=== PATIENT | male | born 1950 ===

== ENCOUNTER 2018-07-15 22:33 | Observation (INO) | payer MEDICARE, BC ==
--- NOTE | 2018-07-16 00:01 | C.PDOC ---
History Of Present Illness Patient presents with worsening lower extremity edema and worsening scrotal and penile edema. Patient has Hx of kidney transplant and insulin dependent diabetes. Denies chest pain or SOB. Ambulating without difficulty. Time Seen by Provider: 07/16/18 00:00 Chief Complaint (Nursing): Lower Extremity Problem/Injury History Per: Patient History/Exam Limitations: no limitations Onset/Duration Of Symptoms: Hrs Current Symptoms Are (Timing): Still Present Severity: Moderate Pain Scale Rating Of: 4 Reports Recently: Treated By A Physician Recent travel outside of the [place]: No Additional History Per: Patient Past Medical History Reviewed: Historical Data, Nursing Documentation, Vital Signs Vital Signs: Last Vital Signs Temp 98.4 F 07/15/18 22:51 Pulse 60 07/15/18 22:51 Resp 16 07/15/18 22:51 BP Pulse Ox 100 07/15/18 22:51 Primary Care Provider: Non [facility] Provider, - Medical History PMH: HTN Family History: States: No Known Family Hx - Social History Hx Alcohol Use: No Hx Substance Use: No - Immunization History Hx Tetanus Toxoid Vaccination: No Hx Influenza Vaccination: Yes Hx Pneumococcal Vaccination: No Review Of Systems Constitutional: Negative for: Fever, Chills Eyes: Negative for: Vision Change ENT: Negative for: Throat Pain Cardiovascular: Negative for: Chest Pain, Palpitations Respiratory: Negative for: Cough, Shortness of Breath Gastrointestinal: Negative for: Nausea, Vomiting Genitourinary: Positive for: Scrotal Pain, Other (Scrotal and penile edema). Negative for: Dysuria Musculoskeletal: Positive for: Other (Lower extremity edema) Skin: Negative for: Rash Neurological: Negative for: Weakness, Numbness Psych: Negative for: Anxiety Physical Exam - Physical Exam Appears: Non-toxic Skin: Warm, Dry Head: Normacephalic Eye(s): bilateral: Normal Inspection Oral Mucosa: Moist Neck: Trachea Midline, Supple Chest: Symmetrical, No Tenderness Cardiovascular: Rhythm Regular Respiratory: No Rales, No Rhonchi, No Wheezing Gastrointestinal/Abdominal: Soft, No Tenderness, Other (Para midline surgical scar, well healed) Back: No CVA Tenderness Male Genital: No Testicular Tenderness, Inguinal Swelling, Scrotal Swelling, No Circumcised, Other (Severe penile and scrotal edema.) Extremity: Pedal Edema (Bilateral) Extremity: Bilateral: Atraumatic, Normal Color And Temperature Pulses: Left Dorsalis Pedis: Normal, Right Dorsalis Pedis: Normal Neurological/Psych: Oriented x3 Gait: Steady ED Course And Treatment - Laboratory Results Result Diagrams: 07/16/18 01:08 07/16/18 01:08 ECG: Interpreted By Me, Viewed By Me ECG Rhythm: Sinus Rhythm (56), 1st Degree HB, Nonspecific Changes O2 Sat by Pulse Oximetry: 100 (Room air) Pulse Ox Interpretation: Normal - Radiology CXR: Interpreted by Me, Viewed By Me CXR Interpretation: No: Infiltrates, Fracture, Pnemothorax Progress Note: EKG, blood work, CXR, and urinalysis ordered. Disposition Discussed With : Rakan Agarwal Comment: accepted the pt on his service and took over the care at 3:04 AM Counseled Patient/Family Regarding: Studies Performed, Diagnosis - Disposition Disposition: HOSPITALIZED Disposition Time: 00:01 Condition: FAIR Forms: [facility] ([place]) - POA Present On Arrival: None - Clinical Impression Clinical Impression: CHF (congestive heart failure), Scrotal edema - Scribe Statement The provider has reviewed the documentation as recorded by the Scribsamia Teague All medical record entries made by the Renataibe were at my direction and personally dictated by me. I have reviewed the chart and agree that the record accurately reflects my personal performance of the history, physical exam, medical decision making, and the department course for this patient. I have also personally directed, reviewed, and agree with the discharge instructions and disposition. Decision To Admit - Pt Status Changed To: Hospital Disposition Of: Observation - . Bed Request Type: Telemetry Admitting Physician: Rakan Agarwal Patient Diagnosis: CHF (congestive heart failure), Scrotal edema
[2018-07-16 01:17] LABS: BASO % 0.3 % (0.0-2.0); EOS # 0.1 K/uL (0.0-0.7); EOS % 1.3 % (0.0-4.0); HEMOGLOBIN 12.5 g/dL (12.0-18.0); LYMPH % 17.5 % (20.0-40.0); MEAN CELL VOLUME 89.7 fL (80.0-94.0); MEAN CORPUSCULAR HEMOGLOBIN 29.7 pg (27.0-31.0); MEAN CORPUSCULAR HGB CONC 33.1 g/dL (33.0-37.0); MEAN PLATELET VOLUME 8.6 fL (7.2-11.7); MONO # 0.6 K/uL (0.0-0.8); MONO % 10.8 % (0.0-10.0); NEUT # 3.8 K/uL (1.8-7.0); NEUT % 70.1 % (50.0-75.0); NRBC % 0.1 % (0.0-2.0); RBC 4.19 Mil/uL (4.40-5.90); RED CELL DISTRIBUTION WIDTH 13.5 % (11.5-14.5); WHITE BLOOD COUNT 5.5 K/uL (4.8-10.8)
[2018-07-16 01:23] LABS: INR 1.1; PARTIAL THROMBOPLASTIN TIME 29.5 SECONDS (21-34); PROTHROMBIN TIME 11.9 SECONDS (9.7-12.2)
[2018-07-16 01:54] LABS: ALB/GLOB RATIO 1.6 (1.0-2.1); ALBUMIN 3.4 g/dL (3.5-5.0); ALT/SGPT 26 U/L (21-72); AST/SGOT 52 U/L (17-59); BLOOD UREA NITROGEN 20 mg/dL (9-20); CALCIUM 8.9 mg/dl (8.6-10.4); GFR NON-AFRICAN AMERICAN > 60
[2018-07-16 02:10] LABS: B-TYPE NATRIURETIC PEPTIDE 7000 pg/mL (0-900)
[2018-07-16 03:43] LABS: SQUAMOUS EPITHIAL < 1 /hpf (0-5); URINE BILIRUBIN NEGATIVE (NEGATIVE); URINE BLOOD NEGATIVE (NEGATIVE); URINE CLARITY Clear (Clear); URINE COLOR Straw (YELLOW); URINE GLUCOSE (UA) NORMAL (Normal); URINE LEUKOCYTE ESTERASE NEG Leu/uL (Negative); URINE PROTEIN NEGATIVE (NEGATIVE); URINE UROBILINOGEN NORMAL mg/dL (0.2-1.0)
--- NOTE | 2018-07-16 07:05 | CP.PCM.CON ---
<Kayley Pino - Last Filed: 07/16/18 18:08> History of Present Illness - History of Present Illness History of Present Illness: Kayley Pino, PGY1 Consult Note for Dr. Cerda: CC: Penile and scrotal swelling Consulted for: LE edema Pt is a 68 yo M with pmhx of CAD s/p stent (12/11), HTN, IDDM, renal transplant in '09 who presented to [facility] ED for 2 day hx of penile and sctrotal swelling as well as LE edema x 1 wk. Cardiology team was consulted for suspicion of CHF. Pt states that over the past 2 months he has had a change in his diet and has been eating increasingly salty foods. Pt states that for the past 2 years he has noted that he has been profusely sweating every night. Pt also reports to 5 lbs of unintentional weight loss over the last year. Pt states that he has been hav ing cramps and thought it was related to salt loss from his sweating everynight. Pt states that he has been purposefully including 1/2 spoonful of salt in meals which he states has been helping his salt intake. Pt reports that he noted his LE edema first but it was not limiting his activity levels or ability to lay down flat. Pt reports that this is the first time he has ever had a problem like this. At this time the pt is resting comfortably in bed and denies any fevers, chills, headache, lightheadedness, SOB, MÉNDEZ, PND, cough, chest pain, palpitations, abd pain, n/v, c/d or dysuria. Pt does admit to LE swelling as well as penile and scrotal swelling. Pt denies any pain or discharge from the penis, or any lesions on the penis or scrotum. Review of Systems - Review of Systems Review of Systems: 12 point ROS reviewed and negative except noted in HPI above. Past Patient History - Past Social History Smoking Status: Never Smoked - CARDIAC Hx Hypertension: Yes - ENDOCRINE/METABOLIC Hx Endocrine Disorders: Yes Hx Diabetes Mellitus Type 1: Yes - PSYCHIATRIC Hx Substance Use: No - SURGICAL HISTORY Hx Surgeries: Yes Hx Kidney Transplant: Yes (2008) - ANESTHESIA Hx Anesthesia: Yes Hx Anesthesia Reactions: No Meds Allergies/Adverse Reactions: Allergies Allergy/AdvReac Type Severity Reaction Status Date / Time No Known Allergies Allergy Verified 07/15/18 22:57 Physical Exam - Constitutional Appears: Non-toxic, No Acute Distress - Head Exam Head Exam: ATRAUMATIC, NORMAL INSPECTION, NORMOCEPHALIC - Eye Exam Eye Exam: EOMI, Normal appearance, PERRL - ENT Exam ENT Exam: Mucous Membranes Moist - Respiratory Exam Respiratory Exam: Clear to Auscultation Bilateral, NORMAL BREATHING PATTERN. absent: Accessory Muscle Use, Rales, Rhonchi, Wheezes, Respiratory Distress - Cardiovascular Exam Cardiovascular Exam: RRR, +S1, +S2. absent: Gallop, Rubs - GI/Abdominal Exam GI & Abdominal Exam: Normal Bowel Sounds, Soft. absent: Firm, Guarding, Rigid, Tenderness - Exam Exam: Scrotal Swelling (Pt also noted to have penile swelling with no associated erythema, lesions or drainage.). absent: Testicular Tenderness, Uretheral Discharge - Extremities Exam Extremities exam: Positive for: normal capillary refill, pedal edema (2+ b/l pitting edema), pedal pulses present. Negative for: calf tenderness - Back Exam Back exam: NORMAL INSPECTION. absent: CVA tenderness (L), CVA tenderness (R) - Neurological Exam Neurological exam: Alert, Normal Gait, Oriented x3 - Psychiatric Exam Psychiatric exam: Normal Affect, Normal Mood - Skin Skin Exam: Dry, Normal Color, Warm Results - Vital Signs Recent Vital Signs: Last Vital Signs Temp 98.4 F 07/16/18 05:35 Pulse 57 L 07/16/18 05:35 Resp 20 07/16/18 05:35 BP 195/63 H 07/16/18 05:35 Pulse Ox 99 07/16/18 05:35 - Labs Result Diagrams: 07/16/18 01:08 07/16/18 01:08 Labs: Laboratory Results - last 24 hr 07/16/18 07/16/18 07/16/18 00:12 01:08 01:08 WBC 5.5 RBC 4.19 L Hgb 12.5 Hct 37.6 MCV 89.7 MCH 29.7 MCHC 33.1 RDW 13.5 Plt Count 165 MPV 8.6 Neut % (Auto) 70.1 Lymph % (Auto) 17.5 L [place] % (Auto) 10.8 H Eos % (Auto) 1.3 Baso % (Auto) 0.3 Neut # (Auto) 3.8 Lymph # (Auto) 1.0 [place] # (Auto) 0.6 Eos # (Auto) 0.1 Baso # (Auto) 0.0 PT 11.9 INR 1.1 APTT 29.5 Sodium Potassium Chloride Carbon Dioxide Anion Gap BUN Creatinine Est GFR ( Amer) Est GFR (Non-Af Amer) POC Glucose (mg/dL) Random Glucose Calcium Magnesium Total Bilirubin AST ALT Alkaline Phosphatase Troponin I NT-Pro-B Natriuret Pep Total Protein Albumin Globulin Albumin/Globulin Ratio TSH 3rd Generation Urine Color Straw Urine Clarity Clear Urine pH 6.0 Ur Specific [place] 1.002 L Urine Protein Negative Urine Glucose (UA) Normal Urine Ketones Negative Urine Blood Negative Urine Nitrate Negative Urine Bilirubin Negative Urine Urobilinogen Normal Ur Leukocyte Esterase Neg Urine WBC (Auto) < 1 Urine RBC (Auto) 2 Ur Squamous Epith Cells < 1 07/16/18 07/16/18 07/16/18 01:08 05:33 05:36 WBC RBC Hgb Hct MCV MCH MCHC RDW Plt Count MPV Neut % (Auto) Lymph % (Auto) [place] % (Auto) Eos % (Auto) Baso % (Auto) Neut # (Auto) Lymph # (Auto) [place] # (Auto) Eos # (Auto) Baso # (Auto) PT INR APTT Sodium 128 L Potassium 4.0 Chloride 94 L Carbon Dioxide 27 Anion Gap 12 BUN 20 Creatinine 1.0 Est GFR ( Amer) > 60 Est GFR (Non-Af Amer) > 60 POC Glucose (mg/dL) 58 L 61 L Random Glucose 91 Calcium 8.9 Magnesium 1.6 Total Bilirubin 0.3 AST 52 ALT 26 Alkaline Phosphatase 42 Troponin I 0.0550 NT-Pro-B Natriuret Pep 7000 H Total Protein 5.5 L Albumin 3.4 L Globulin 2.1 L Albumin/Globulin Ratio 1.6 TSH 3rd Generation 1.42 Urine Color Urine Clarity Urine pH Ur Specific [place] Urine Protein Urine Glucose (UA) Urine Ketones Urine Blood Urine Nitrate Urine Bilirubin Urine Urobilinogen Ur Leukocyte Esterase Urine WBC (Auto) Urine RBC (Auto) Ur Squamous Epith Cells 07/16/18 06:23 WBC RBC Hgb Hct MCV MCH MCHC RDW Plt Count MPV Neut % (Auto) Lymph % (Auto) [place] % (Auto) Eos % (Auto) Baso % (Auto) Neut # (Auto) Lymph # (Auto) [place] # (Auto) Eos # (Auto) Baso # (Auto) PT INR APTT Sodium Potassium Chloride Carbon Dioxide Anion Gap BUN Creatinine Est GFR ( Amer) Est GFR (Non-Af Amer) POC Glucose (mg/dL) 111 H Random Glucose Calcium Magnesium Total Bilirubin AST ALT Alkaline Phosphatase Troponin I NT-Pro-B Natriuret Pep Total Protein Albumin Globulin Albumin/Globulin Ratio TSH 3rd Generation Urine Color Urine Clarity Urine pH Ur Specific [place] Urine Protein Urine Glucose (UA) Urine Ketones Urine Blood Urine Nitrate Urine Bilirubin Urine Urobilinogen Ur Leukocyte Esterase Urine WBC (Auto) Urine RBC (Auto) Ur Squamous Epith Cells Assessment & Plan - Assessment and Plan (Free Text) Assessment: Pt is a 68 yo M with pmhx of CAD s/p stent (12/11), HTN, IDDM, renal transplant in '09 who presented to [facility] ED for 2 day hx of penile and sctrotal swelling as well as LE edema x 1 wk. Cardiology team was consulted for suspicion of CHF. 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 Pt is attempting to compensate for hyponatremia 2/2 extra-renal losses by increasing PO intake of sodium which is activating RAAS System. Pt is having profuse nightsweats daily for 2 years in addition to 5 lb unintentional weight loss. Likely caused by yet unknown inflammatory condition co-existing in pt. - BNP 7K likely due to high flow state cause by the PO intake of Na and activation of RAAS - LE edema is likely combination of poor venous system in addtion to high flow state. Pt has no SOB, MÉNDEZ, PND or JVD which would otherwise indicate acute CHF. - Echo to assess cardio function - Lasix 40 IVP qd - Strict I/Os - Zestril - Torprol XL - Hydralazine 100 q8 - Isosorbide dinitate 20 TID Hyponatremia likely 2/2 extra-renal losses - Pt has been having profuse night sweats for 2 years. Pt also states that he has unintentional 5 lb weight loss. - Pt also on tacrolimus s/p renal transplant - Will get heme/onc to further assess underlying inflammatory condition and r/o malignancy - SPEP, UPEP, C3, C4 and complete compliment panel ordered. Hx of CAD s/p stent 12/11: - Cont ASA, Toprol XL, Zestril Hx of HTN: - Cont zestril, hydralazine <Humberto Cerda - Last Filed: 07/18/18 09:31> Meds - Medications Medications: Current Medications Aspirin (Aspirin Chewable) 81 mg PO DAILY [facility] Last Admin: 07/17/18 09:36 Dose: 81 mg Clonidine HCl (Catapres) 0.1 mg PO TID [facility] Dextrose (Dextrose 50% Inj) 0 ml IV STAT PRN; Protocol PRN Reason: Hypoglycemia Protocol Dextrose (Glutose 15) 0 gm PO ONCE PRN; Protocol PRN Reason: Hypoglycemia Protocol Furosemide (Lasix) 40 mg IVP DAILY [facility] Last Admin: 07/17/18 09:37 Dose: 40 mg Glucagon (Glucagen Diagnostic Kit) 0 mg IM STAT PRN; Protocol PRN Reason: Hypoglycemia Protocol Home Med (Mycophenolate Sodium [Myfortic]) 3 tab PO BID [facility] Hydralazine HCl (Apresoline) 100 mg PO Q8H [facility] Last Admin: 07/18/18 02:17 Dose: 100 mg Sodium Chloride (Sodium Chloride 0.9%) 1,000 mls @ 75 mls/hr IV .[id number] [facility] Last Admin: 07/17/18 20:42 Dose: Not Given Dextrose (Dextrose 5% In Water 1000 Ml) 1,000 mls @ 0 mls/hr IV .Q0M PRN; Shyann col PRN Reason: Hypoglycemia Protocol Insulin Aspart (Novolog) 0 unit SC ACHS [facility]; Protocol Last Admin: 07/18/18 08:43 Dose: Not Given Insulin Glargine (Lantus) 10 unit SC HS [facility] Last Admin: 07/17/18 21:54 Dose: 10 units Lisinopril (Zestril) 10 mg PO DAILY [facility] Last Admin: 07/17/18 09:36 Dose: 10 mg Losartan Potassium (Cozaar) 100 mg PO DAILY [facility] Last Admin: 07/17/18 09:36 Dose: 100 mg Metoprolol Succinate (Toprol Xl) 25 mg PO DAILY [facility] Last Admin: 07/17/18 09:36 Dose: Not Given Multivitamins/Minerals (Therapeutic-M Tab) 1 tab PO DAILY [facility] Last Admin: 07/17/18 09:35 Dose: 1 tab Pantoprazole Sodium (Protonix Ec Tab) 40 mg PO DAILY PRN PRN Reason: hyperacidity Last Admin: 07/17/18 07:33 Dose: 40 mg Prednisone (Prednisone Tab) 5 mg PO DAILY [facility] Last Admin: 07/17/18 09:36 Dose: 5 mg Tacrolimus (Prograf Cap) 2 mg PO Q12 [facility] Last Admin: 07/17/18 21:53 Dose: 2 mg Trimethoprim/Sulfamethoxazole (Bactrim Ds Tab) 1 tab PO Q2W [facility]; Protocol Results - Vital Signs Recent Vital Signs: Last Vital Signs Temp 97.4 F L 07/18/18 07:00 Pulse 70 07/18/18 08:44 Resp 20 07/18/18 07:00 BP 167/51 H 07/18/18 07:00 Pulse Ox 100 07/18/18 07:00 - Labs Result Diagrams: 07/16/18 01:08 07/18/18 07:59 Labs: Laboratory Results - last 24 hr 07/16/18 07/17/18 07/17/18 20:07 01:35 11:02 Sodium Potassium Chloride Carbon Dioxide Anion Gap BUN Creatinine Est GFR ( Amer) Est GFR (Non-Af Amer) POC Glucose (mg/dL) 277 H Random Glucose Calcium Lactate Dehydrogenase Total Protein (PEP) 5.2 L Ur Random Creatinine 41 U Random Total Protein 732 H IgG IgA IgM 07/17/18 07/17/18 07/17/18 13:51 13:51 13:51 Sodium Potassium Chloride Carbon Dioxide Anion Gap BUN Creatinine Est GFR ( Amer) Est GFR (Non-Af Amer) POC Glucose (mg/dL) Random Glucose Calcium Lactate Dehydrogenase 481 Total Protein (PEP) 5.5 L Ur Random Creatinine U Random Total Protein IgG 774.6 IgA 170.6 IgM 54.0 07/17/18 07/17/18 07/17/18 16:07 16:08 16:43 Sodium Potassium Chloride Carbon Dioxide Anion Gap BUN Creatinine Est GFR ( Amer) Est GFR (Non-Af Amer) POC Glucose (mg/dL) 65 60 L 129 H Random Glucose Calcium Lactate Dehydrogenase Total Protein (PEP) Ur Random Creatinine U Random Total Protein IgG IgA IgM 07/17/18 07/18/18 07/18/18 21:14 01:55 06:48 Sodium Potassium Chloride Carbon Dioxide Anion Gap BUN Creatinine Est GFR ( Amer) Est GFR (Non-Af Amer) POC Glucose (mg/dL) 408 H* 270 H 164 H Random Glucose Calcium Lactate Dehydrogenase Total Protein (PEP) Ur Random Creatinine U Random Total Protein IgG IgA IgM 07/18/18 07:59 Sodium 130 L Potassium 4.0 Chloride 99 Carbon Dioxide 24 Anion Gap 12 BUN 24 H Creatinine 1.3 Est GFR ( Amer) > 60 Est GFR (Non-Af Amer) 55 POC Glucose (mg/dL) Random Glucose 140 H Calcium 8.7 Lactate Dehydrogenase Total Protein (PEP) Ur Random Creatinine U Random Total Protein IgG IgA IgM Attending/Attestation - Attestation I have personally seen and examined this patient.: Yes I have fully participated in the care of the patient.: Yes I have reviewed all pertinent clinical information: Yes Notes (Text): 07/18/18 09:28 Etiology of scrotal and LE swelling ? 2' to salt loading echo low dose diuretic RAAS modulators Bb
--- NOTE | 2018-07-16 09:35 | RAD ---
Date of service: 07/16/2018 HISTORY: Shortness of breath COMPARISON: 07/16/2018 TECHNIQUE: 1 view obtained. FINDINGS: LUNGS: No active pulmonary disease. Right hilar prominence. Small nodular density at the right lung apex. PLEURA: No significant pleural effusion identified, no pneumothorax apparent. CARDIOVASCULAR: Aortic atherosclerotic calcification present. Tortuous ectatic aorta. Normal cardiac size. No pulmonary vascular congestion. OSSEOUS STRUCTURES: No significant abnormalities. VISUALIZED UPPER ABDOMEN: Normal. OTHER FINDINGS: None. IMPRESSION: No focal infiltrate or effusion. Right hilar prominence. Clinical correlation. Small nodular density at the right lung apex. Tortuous ectatic aorta with atherosclerotic calcification at the aortic knob.
[2018-07-16] MEDS: Metoprolol Succinate 25 mg XL Tab PO SCH (10:38)
[2018-07-16] MEDS: Multivitamin With Minerals Tab PO SCH (10:38)
[2018-07-16] MEDS: Pantoprazole 40 mg EC Tab PO PRN (10:38)
[2018-07-16] MEDS ORDERED: MYCOPHENOLATE SODIUM PO SCH (11:30)
[2018-07-16] MEDS: (Novolog) Insulin Aspart, Recombinant 100 u/ml 10 ml vial SC SCH ×2 (18:12→21:16)
[2018-07-16] MEDS: Sodium Chloride 0.9% 1,000 ML IV SCH (18:53)
[2018-07-16 20:43] LABS: COMPLEMENT C4 19.9 mg/dL (14.0-44.0)
--- NOTE | 2018-07-16 20:49 | CP.PCM.HP ---
History of Present Illness - History of Present Illness History of Present Illness: 68-year-old male patient comes with worsening lower extremity edema and worsening scrotal and perineal edema.patient is ambulating without difficulty patient has history of kidney transplant and insulin-dependent diabetes.past medical history of hypertension.no history of fever, chills, vision changes, chest pain, palpitations.no history of cough, shortness of breath.no history of rash, weakness, numbness. Past Medical History Reviewed: Historical Data, Nursing Documentation, Vital Signs Vital Signs: Last Vital Signs Temp 98.4 F 07/15/18 22:51 Pulse 60 07/15/18 22:51 Resp 16 07/15/18 22:51 BP Pulse Ox 100 07/15/18 22:51 - Medical History PMH: HTN Family History: States: No Known Family Hx - Social History Hx Alcohol Use: No Hx Substance Use: No - Immunization History Hx Tetanus Toxoid Vaccination: No Hx Influenza Vaccination: Yes Hx Pneumococcal Vaccination: No Review Of Systems Constitutional: Negative for: Fever, Chills Eyes: Negative for: Vision Change ENT: Negative for: Throat Pain Cardiovascular: Negative for: Chest Pain, Palpitations Respiratory: Negative for: Cough, Shortness of Breath Gastrointestinal: Negative for: Nausea, Vomiting Genitourinary: Positive for: Scrotal Pain, Other (Scrotal and penile edema). Negative for: Dysuria Musculoskeletal: Positive for: Other (Lower extremity edema) Skin: Negative for: Rash Neurological: Negative for: Weakness, Numbness Psych: Negative for: Anxiety Past Patient History - Past Social History Smoking Status: Never Smoked - CARDIAC Hx Hypertension: Yes - ENDOCRINE/METABOLIC Hx Endocrine Disorders: Yes Hx Diabetes Mellitus Type 1: Yes - PSYCHIATRIC Hx Substance Use: No - SURGICAL HISTORY Hx Surgeries: Yes Hx Kidney Transplant: Yes (2008) - ANESTHESIA Hx Anesthesia: Yes Hx Anesthesia Reactions: No Meds Allergies/Adverse Reactions: Allergies Allergy/AdvReac Type Severity Reaction Status Date / Time No Known Allergies Allergy Verified 07/15/18 22:57 Physical Exam - Constitutional Appears: Well - Head Exam Head Exam: ATRAUMATIC, NORMAL INSPECTION, NORMOCEPHALIC - Eye Exam Eye Exam: EOMI, Normal appearance, PERRL Pupil Exam: NORMAL ACCOMODATION, PERRL - ENT Exam ENT Exam: Mucous Membranes Moist, Normal Exam - Neck Exam Neck exam: Positive for: Normal Inspection - Respiratory Exam Respiratory Exam: Decreased Breath Sounds - Cardiovascular Exam Cardiovascular Exam: REGULAR RHYTHM, +S1, +S2 - GI/Abdominal Exam GI & Abdominal Exam: Diminished Bowel Sounds, Soft - Rectal Exam Rectal Exam: Deferred - Neurological Exam Neurological exam: Oriented x3 Results - Vital Signs Recent Vital Signs: Last Vital Signs Temp 98 F 07/16/18 18:52 Pulse 62 07/16/18 19:56 Resp 18 07/16/18 17:30 BP 150/52 L 07/16/18 18:52 Pulse Ox 99 07/16/18 17:30 - Labs Result Diagrams: 07/16/18 01:08 07/17/18 08:05 Labs: Laboratory Results - last 24 hr 07/16/18 07/16/18 07/16/18 00:12 01:08 01:08 WBC 5.5 RBC 4.19 L Hgb 12.5 Hct 37.6 MCV 89.7 MCH 29.7 MCHC 33.1 RDW 13.5 Plt Count 165 MPV 8.6 Neut % (Auto) 70.1 Lymph % (Auto) 17.5 L [place] % (Auto) 10.8 H Eos % (Auto) 1.3 Baso % (Auto) 0.3 Neut # (Auto) 3.8 Lymph # (Auto) 1.0 [place] # (Auto) 0.6 Eos # (Auto) 0.1 Baso # (Auto) 0.0 PT 11.9 INR 1.1 APTT 29.5 Sodium Potassium Chloride Carbon Dioxide Anion Gap BUN Creatinine Est GFR ( Amer) Est GFR (Non-Af Amer) POC Glucose (mg/dL) Random Glucose Calcium Magnesium Total Bilirubin AST ALT Alkaline Phosphatase Troponin I NT-Pro-B Natriuret Pep Total Protein Albumin Globulin Albumin/Globulin Ratio TSH 3rd Generation Urine Color Straw Urine Clarity Clear Urine pH 6.0 Ur Specific Clune 1.002 L Urine Protein Negative Urine Glucose (UA) Normal Urine Ketones Negative Urine Blood Negative Urine Nitrate Negative Urine Bilirubin Negative Urine Urobilinogen Normal Ur Leukocyte Esterase Neg Urine WBC (Auto) < 1 Urine RBC (Auto) 2 Ur Squamous Epith Cells < 1 Complement C3 Complement C4 07/16/18 07/16/18 07/16/18 01:08 05:33 05:36 WBC RBC Hgb Hct MCV MCH MCHC RDW Plt Count MPV Neut % (Auto) Lymph % (Auto) [place] % (Auto) Eos % (Auto) Baso % (Auto) Neut # (Auto) Lymph # (Auto) [place] # (Auto) Eos # (Auto) Baso # (Auto) PT INR APTT Sodium 128 L Potassium 4.0 Chloride 94 L Carbon Dioxide 27 Anion Gap 12 BUN 20 Creatinine 1.0 Est GFR ( Amer) > 60 Est GFR (Non-Af Amer) > 60 POC Glucose (mg/dL) 58 L 61 L Random Glucose 91 Calcium 8.9 Magnesium 1.6 Total Bilirubin 0.3 AST 52 ALT 26 Alkaline Phosphatase 42 Troponin I 0.0550 NT-Pro-B Natriuret Pep 7000 H Total Protein 5.5 L Albumin 3.4 L Globulin 2.1 L Albumin/Globulin Ratio 1.6 TSH 3rd Generation 1.42 Urine Color Urine Clarity Urine pH Ur Specific Clune Urine Protein Urine Glucose (UA) Urine Ketones Urine Blood Urine Nitrate Urine Bilirubin Urine Urobilinogen Ur Leukocyte Esterase Urine WBC (Auto) Urine RBC (Auto) Ur Squamous Epith Cells Complement C3 Complement C4 07/16/18 07/16/18 07/16/18 06:23 11:28 17:02 WBC RBC Hgb Hct MCV MCH MCHC RDW Plt Count MPV Neut % (Auto) Lymph % (Auto) [place] % (Auto) Eos % (Auto) Baso % (Auto) Neut # (Auto) Lymph # (Auto) [place] # (Auto) Eos # (Auto) Baso # (Auto) PT INR APTT Sodium Potassium Chloride Carbon Dioxide Anion Gap BUN Creatinine Est GFR ( Amer) Est GFR (Non-Af Amer) POC Glucose (mg/dL) 111 H 190 H 330 H Random Glucose Calcium Magnesium Total Bilirubin AST ALT Alkaline Phosphatase Troponin I NT-Pro-B Natriuret Pep Total Protein Albumin Globulin Albumin/Globulin Ratio TSH 3rd Generation Urine Color Urine Clarity Urine pH Ur Specific Clune Urine Protein Urine Glucose (UA) Urine Ketones Urine Blood Urine Nitrate Urine Bilirubin Urine Urobilinogen Ur Leukocyte Esterase Urine WBC (Auto) Urine RBC (Auto) Ur Squamous Epith Cells Complement C3 Complement C4 07/16/18 20:07 WBC RBC Hgb Hct MCV MCH MCHC RDW Plt Count MPV Neut % (Auto) Lymph % (Auto) [place] % (Auto) Eos % (Auto) Baso % (Auto) Neut # (Auto) Lymph # (Auto) [place] # (Auto) Eos # (Auto) Baso # (Auto) PT INR APTT Sodium Potassium Chloride Carbon Dioxide Anion Gap BUN Creatinine Est GFR ( Amer) Est GFR (Non-Af Amer) POC Glucose (mg/dL) Random Glucose Calcium Magnesium Total Bilirubin AST ALT Alkaline Phosphatase Troponin I NT-Pro-B Natriuret Pep Total Protein Albumin Globulin Albumin/Globulin Ratio TSH 3rd Generation Urine Color Urine Clarity Urine pH Ur Specific Clune Urine Protein Urine Glucose (UA) Urine Ketones Urine Blood Urine Nitrate Urine Bilirubin Urine Urobilinogen Ur Leukocyte Esterase Urine WBC (Auto) Urine RBC (Auto) Ur Squamous Epith Cells Complement C3 56.0 L Complement C4 19.9 Assessment & Plan - Assessment and Plan (Free Text) Assessment: Plan WBC 5.5 Hemoglobin 12.5 Hematocrit 37.6 Platelets 165 Sodium 128 Potassium 4.0 Bicarbonate 27 Bun 20 Creatinine 1.0 Glucose 91 ECGsinus rhythm, first-degree heart block and nonspecific changes O2 saturation 100 Chest x-ray - no infiltrates, fracture or pneumothorax Moderate to high complexity of care. Plan of care discussed with patient &/or family & staff. Medications reviewed and reconciled. Labs reviewed. Vitals reviewed.
[2018-07-16] MEDS ORDERED: (Lantus) Insulin Glargine, Recombinant SC SCH (22:00)
--- NOTE | 2018-07-17 00:58 | CARD ---
APPROVED REPORT Date of service: 07/16/2018 EXAM: Two-dimensional and M-mode echocardiogram with Doppler and color Doppler. INDICATION Congestive Heart Failure EDEMA RISK FACTORS Hypertension Diabetes 2D DIMENSIONS IVSd0.9 (0.7-1.1cm)LVDd4.8 (3.9-5.9cm) PWd1.0 (0.7-1.1cm)LA [id number] (18-58mL) LVDs3.4 (2.5-4.0cm)FS (%) 29.1 % LVEF (%)55.8 (>50%)LVEF (Cortes's)45.74 % M-Mode DIMENSIONS Left Atrium (MM)4.43 (2.5-4.0cm)IVSd1.06 (0.7-1.1cm) Aortic Root3.68 (2.2-3.7cm)LVDd5.40 (4.0-5.6cm) Aortic Cusp Exc.1.86 (1.5-2.0cm)PWd0.97 (0.7-1.1cm) FS (%) 34 %LVDs3.59 (2.0-3.8cm) LVEF (%)62 (>50%) Mitral Valve MV E Rdqplvxd373.8cm/sMV A Htlzeper45.5cm/sE/A ratio2.0 TDI Lateral E' Peak V3.58cm/sMedial E' Peak V4.74cm/sE/Lateral E'29.8 E/Medial E'22.5 Tricuspid Valve TR Peak Welsedxc752jz/sTR Peak Gr.[id number] LEFT VENTRICLE The left ventricle is normal size. There is mild concentric left ventricular hypertrophy. The left ventricular function is mildly reduced The left ventricular ejection fraction is 46% No regional wall motion abnormalities noted. Transmitral Doppler flow pattern is Grade III-reversible restrictive diastolic dysfunction. Abnormal tissue doppler. No left ventricle thrombus noted on this study. There is no ventricular septal defect visualized. There is no left ventricular aneurysm. There is no mass noted in the left ventricle. RIGHT VENTRICLE The right ventricle is normal size. There is normal right ventricular wall thickness. The right ventricular systolic function is normal. ATRIA The left atrial volume index is markedly dilated. The right atrium size is normal. The interatrial septum is intact with no evidence for an atrial septal defect. AORTIC VALVE The aortic valve is normal in structure and function. No aortic regurgitation is present. There is no aortic valvular stenosis. There is no aortic valvular vegetation. MITRAL VALVE The mitral valve is normal in structure and function. There is no evidence of mitral valve prolapse. There is no mitral valve stenosis. There is mild mitral valve regurgitation noted. TRICUSPID VALVE The tricuspid valve is normal in structure and function. There is mild tricuspid valve regurgitation noted. Estimated PA systolic pressure is 51 mm HG. There is no tricuspid valve prolapse or vegetation. There is no tricuspid valve stenosis. PULMONIC VALVE The pulmonary valve is normal in structure and function. There is no pulmonic valvular regurgitation. There is no pulmonic valvular stenosis. GREAT VESSELS The aortic root is normal in size. The ascending aorta is normal in size. The pulmonary artery is normal. The IVC is normal in size and collapses >50% with inspiration. PERICARDIAL EFFUSION The pericardium appears normal. There is no pleural effusion. <Conclusion> The left atrial volume index is markedly dilated. The left ventricular function is mildly reduced The left ventricular ejection fraction is 46% There is mild concentric left ventricular hypertrophy. Moderate pulmonary HTN. Transmitral Doppler flow pattern is Grade III-reversible restrictive diastolic dysfunction. Abnormal tissue doppler. Elevated left atrial pressure.
[2018-07-17] MEDS: Pantoprazole 40 mg EC Tab PO PRN ×2 (07:33→09:36)
[2018-07-17] MEDS: (Novolog) Insulin Aspart, Recombinant 100 u/ml 10 ml vial SC SCH ×4 (08:06→21:54)
[2018-07-17] MEDS ORDERED: Glucagon Recombinant 1 mg Inj IM PRN (08:07)
[2018-07-17] MEDS ORDERED: Dextrose 50% SYRINGE Inj (50 ml) IV PRN (08:07)
[2018-07-17] MEDS: Sodium Chloride 0.9% 1,000 ML IV SCH ×2 (08:23→20:42)
[2018-07-17 08:30] LABS: BLOOD UREA NITROGEN 23 mg/dL (9-20); CALCIUM 8.8 mg/dl (8.6-10.4); GFR NON-AFRICAN AMERICAN > 60; HDL CHOLESTEROL 52 mg/dL (30-70)
[2018-07-17 08:40] LABS: LDL CHOLESTEROL 96 mg/dL (0-129)
[2018-07-17] MEDS: Multivitamin With Minerals Tab PO SCH (09:35)
[2018-07-17] MEDS: Metoprolol Succinate 25 mg XL Tab PO SCH (09:36)
[2018-07-17] MEDS ORDERED: Iohexol 240 (50 ml) PO ONE (10:30)
[2018-07-17] MEDS ORDERED: Iohexol 350mg/ml 100 ML ONE (10:31)
--- NOTE | 2018-07-17 11:09 | CP.PCM.CON ---
History of Present Illness - History of Present Illness History of Present Illness: HEMONC CONSULT NOTE 68 year old male patient with pmhx of CAD s/p stent (12/11), HTN, IDDM, renal transplant in '09 who presented to [facility], [place] ED for 2 day hx of penile and scrotal swelling as well as LE edema x 1 wk. Hematology consulted for persistent night sweats and weight loss of 5lbs over the last few months. Patient states that he has had night sweats over two years which are drenching. He denies any lumps or palpable lymph nodes. His appetite is good, but he continues to lose weight. Mr. Garcia has been seeing Dr. Wallace his primary and has been prescribed two rounds of antibiotics without any resolution of his night sweats. His last CT scan was over a year ago at [facility] in the [place]. Since admission, he states that his scrotal swelling and penile swelling has subsided significantly. He denies any fevers, chills, headache, lightheadedness, SOB, MÉNDEZ, PND, cough, chest pain, palpitations, abd pain, n/v, c/d or dysuria. ROS: all systems reviewed and are negative other than what is mentioned above PMHx as above Surgical History: renal transplant Allergies: NKDA Meds: as per med rec Tacrolimus 5mg po BID PCP: Dr. Wallace Review of Systems - Constitutional Constitutional: As Per HPI - EENT Eyes: As Per HPI, Decreased Night Vision Ears: As Per HPI Nose/Mouth/Throat: As Per HPI - Cardiovascular Cardiovascular: As Per HPI - Respiratory Respiratory: As Per HPI - Gastrointestinal Gastrointestinal: As Per HPI - Genitourinary Genitourinary: As Per HPI - Reproductive: Male Reproductive:Male: As Per HPI - Musculoskeletal Musculoskeletal: As Per HPI - Integumentary Integumentary: As Per HPI - Neurological Neurological: As Per HPI - Psychiatric Psychiatric: As Per HPI - Endocrine Endocrine: As Per HPI - Hematologic/Lymphatic Hematologic: As Per HPI Past Patient History - Past Social History Smoking Status: Never Smoked - CARDIAC Hx Hypertension: Yes - ENDOCRINE/METABOLIC Hx Endocrine Disorders: Yes Hx Diabetes Mellitus Type 1: Yes - PSYCHIATRIC Hx Substance Use: No - SURGICAL HISTORY Hx Surgeries: Yes Hx Kidney Transplant: Yes (2008) - ANESTHESIA Hx Anesthesia: Yes Hx Anesthesia Reactions: No Meds Allergies/Adverse Reactions: Allergies Allergy/AdvReac Type Severity Reaction Status Date / Time No Known Allergies Allergy Verified 07/15/18 22:57 - Medications Medications: Current Medications Aspirin (Aspirin Chewable) 81 mg PO DAILY [facility] Last Admin: 07/17/18 09:36 Dose: 81 mg Dextrose (Dextrose 50% Inj) 0 ml IV STAT PRN; Protocol PRN Reason: Hypoglycemia Protocol Dextrose (Glutose 15) 0 gm PO ONCE PRN; Protocol PRN Reason: Hypoglycemia Protocol Furosemide (Lasix) 40 mg IVP DAILY [facility] Last Admin: 07/17/18 09:37 Dose: 40 mg Glucagon (Glucagen Diagnostic Kit) 0 mg IM STAT PRN; Protocol PRN Reason: Hypoglycemia Protocol Home Med (Mycophenolate Sodium [Myfortic]) 3 tab PO BID [facility] Hydralazine HCl (Apresoline) 100 mg PO Q8H [facility] Last Admin: 07/17/18 09:45 Dose: 100 mg Sodium Chloride (Sodium Chloride 0.9%) 1,000 mls @ 75 mls/hr IV .[id number] [facility] Last Admin: 07/17/18 08:23 Dose: 75 mls/hr Dextrose (Dextrose 5% In Water 1000 Ml) 1,000 mls @ 0 mls/hr IV .Q0M PRN; Protocol PRN Reason: Hypoglycemia Protocol Insulin Aspart (Novolog) 0 unit SC [facility]; Protocol Last Admin: 07/17/18 08:06 Dose: Not Given Insulin Glargine (Lantus) 10 unit SC [facility] Lisinopril (Zestril) 10 mg PO DAILY [facility] Last Admin: 07/17/18 09:36 Dose: 10 mg Losartan Potassium (Cozaar) 100 mg PO DAILY [facility] Last Admin: 07/17/18 09:36 Dose: 100 mg Metoprolol Succinate (Toprol Xl) 25 mg PO DAILY [facility] Last Admin: 07/17/18 09:36 Dose: Not Given Multivitamins/Minerals (Therapeutic-M Tab) 1 tab PO DAILY [facility] Last Admin: 07/17/18 09:35 Dose: 1 tab Pantoprazole Sodium (Protonix Ec Tab) 40 mg PO DAILY PRN PRN Reason: hyperacidity Last Admin: 07/17/18 07:33 Dose: 40 mg Prednisone (Prednisone Tab) 5 mg PO DAILY [facility] Last Admin: 07/17/18 09:36 Dose: 5 mg Tacrolimus (Prograf Cap) 2 mg PO Q12 [facility] Last Admin: 07/17/18 09:37 Dose: 2 mg Trimethoprim/Sulfamethoxazole (Bactrim Ds Tab) 1 tab PO Q2W [facility]; Protocol Physical Exam - Constitutional Appears: Well, Non-toxic, No Acute Distress - Head Exam Head Exam: ATRAUMATIC, NORMAL INSPECTION, NORMOCEPHALIC - Eye Exam Eye Exam: EOMI, Normal appearance, PERRL Pupil Exam: NORMAL ACCOMODATION - ENT Exam ENT Exam: Mucous Membranes Moist, Normal Exam - Neck Exam Neck exam: Positive for: Full Rom, Normal Inspection. Negative for: Lymphadenopathy - Respiratory Exam Respiratory Exam: Clear to Auscultation Bilateral, NORMAL BREATHING PATTERN. absent: Rales, Rhonchi, Wheezes - Cardiovascular Exam Cardiovascular Exam: REGULAR RHYTHM, +S1, +S2 - GI/Abdominal Exam GI & Abdominal Exam: Hernia, Normal Bowel Sounds, Soft. absent: Mass, Organomegaly - Rectal Exam Rectal Exam: Deferred - Exam Exam: Scrotal Swelling. absent: Circumcision, NORMAL INSPECTION - Extremities Exam Extremities exam: Positive for: full ROM, normal inspection - Back Exam Back exam: NORMAL INSPECTION - Neurological Exam Neurological exam: Alert, CN II-XII Intact, Normal Gait, Oriented x3 Results - Vital Signs Recent Vital Signs: Last Vital Signs Temp 97.3 F L 07/17/18 07:05 Pulse 59 L 07/17/18 09:34 Resp 20 07/17/18 07:05 BP 160/63 H 07/17/18 09:37 Pulse Ox 100 07/17/18 07:05 - Labs Result Diagrams: 07/16/18 01:08 07/17/18 08:05 Labs: Laboratory Results - last 24 hr 07/16/18 07/16/18 07/16/18 11:28 17:02 20:07 Sodium Potassium Chloride Carbon Dioxide Anion Gap BUN Creatinine Est GFR ( Amer) Est GFR (Non-Af Amer) POC Glucose (mg/dL) 190 H 330 H Random Glucose Calcium Triglycerides Cholesterol LDL Cholesterol Direct HDL Cholesterol Complement C3 56.0 L Complement C4 19.9 07/16/18 07/17/18 07/17/18 21:13 00:00 06:38 Sodium Potassium Chloride Carbon Dioxide Anion Gap BUN Creatinine Est GFR ( Amer) Est GFR (Non-Af Amer) POC Glucose (mg/dL) 194 H 115 H 57 L Random Glucose Calcium Triglycerides Cholesterol LDL Cholesterol Direct HDL Cholesterol Complement C3 Complement C4 07/17/18 07/17/18 07/17/18 06:39 07:06 08:05 Sodium 130 L Potassium 3.6 Chloride 94 L Carbon Dioxide 29 Anion Gap 11 BUN 23 H Creatinine 1.1 Est GFR ( Amer) > 60 Est GFR (Non-Af Amer) > 60 POC Glucose (mg/dL) 55 L 110 Random Glucose 144 H D Calcium 8.8 Triglycerides 79 Cholesterol 162 LDL Cholesterol Direct 96 HDL Cholesterol 52 Complement C3 Complement C4 Assessment & Plan - Assessment and Plan (Free Text) Assessment: 68 year old male patient with extensive medical history admitted for scrotal swelling due to excessive salt intake and salt retention. He is noted to have persistent night sweats and weight loss which is concerning for hematological malignancy given his long standing history of immunosuppresion with Tacrolimus post renal transplant. Plan CBC, CMP, LDH, ESR, B2M SPEP, Serum Immunoglobulins, serum free light chains CT chest/abd/pelvis ordered Patient can follow up results on outpatient basis as he is feeling better and his swelling has subsided Thank you for allowing me to partake in your patients care. Sincerely, Emile Daniels
[2018-07-17] MEDS ORDERED: Iodixanol 320 MG/ML 100 ML BOTTLE IV ONE (12:05)
--- NOTE | 2018-07-17 13:41 | CT ---
Date of service: 07/17/2018 CT chest, abdomen, and pelvis with IV contrast Indication: rule out lymphadenopathy Technique: Contiguous axial images of the chest, abdomen, and pelvis. Coronal and Sagittal reformats generated and reviewed. This CT exam was performed using 1 or more of the following dose reduction techniques: Automated exposure control, adjustment of the MAA and/or kV according to patient size, and/or use of iterative reconstruction technique. Contrast: Radiation dose: Total exam DLP = 525.08 MGy-cm. Comparison: Images from CT of the abdomen and pelvis without IV contrast performed 10/05/11 Findings: Visualized portions of the inferior thyroid gland appear unremarkable. The mediastinal and hilar vascular structures appear within normal limits. Mild cardiomegaly. Dense coronary artery calcifications. Mediastinal adenopathy measuring up to approximately 11 mm in short axis (precarinal). 8 mm right apical lung nodule. No focal consolidation. No pleural effusion. No pneumothorax. Small hiatal hernia/distal esophageal wall thickening. Paucity of intra-abdominal intrapelvic fat limits evaluation. Pancreatic atrophy. Coarse pancreatic calcifications and dilated ectatic pancreatic duct may be secondary to chronic pancreatitis; correlate clinically. Atrophic bilateral [place] kidneys. Right lower quadrant transplant kidney. Peripherally calcified rounded structure at the splenic hilum consistent with calcified splenic artery aneurysm. The liver, spleen, adrenal glands, and gallbladder appear unremarkable. Mild hazy mesenteric edema. The stomach is nondistended. Moderate to severe diffuse constipation. The bowel loops appear within normal limits of caliber without evidence of intestinal obstruction. The appendix appears within normal limits of caliber. No secondary signs of acute appendicitis. There is no definite free air. The prostate gland measures approximately 3.7 x 3.9 cm. Urinary bladder distension. Degenerative changes of the spine. Impression: Mild cardiomegaly. Dense coronary artery calcifications. Mediastinal adenopathy measuring up to approximately 11 mm in short axis (precarinal). 8 mm right apical lung nodule. According to 2017 Fleischner criteria, if the patient is low risk, CT at 6-12 months is recommended, then consider CT at 18-24 months. If the patient is high risk, CT at 6-12 months is recommended, then CT at 18-24 months. Pancreatic atrophy. Coarse pancreatic calcifications and dilated ectatic pancreatic duct may be secondary to chronic pancreatitis; correlate clinically. Atrophic bilateral [place] kidneys. Right lower quadrant transplant kidney. Peripherally calcified rounded structure at the splenic hilum consistent with calcified splenic artery aneurysm. Mild hazy mesenteric edema. Moderate to severe diffuse constipation. Additional findings as above.
[2018-07-17 14:18] LABS: IMMUNOGLOBULIN A 170.6 mg/dL (70.0-400.0); IMMUNOGLOBULIN G 774.6 mg/dL (700.0-1600.0)
--- NOTE | 2018-07-17 19:07 | CP.PCM.PN ---
Subjective - Date & Time of Evaluation Date of Evaluation: 07/17/18 - Subjective Subjective: patient seen today no nausea, no vomiting, no dizziness, no diarrhea, no fever no shortness of breath Objective - Vital Signs/Intake and Output Vital Signs (last 24 hours): Temp Pulse Resp BP Pulse Ox 97.8 F 62 20 167/55 H 100 07/17/18 15:45 07/17/18 16:07 07/17/18 15:45 07/17/18 15:45 07/17/18 15:45 Intake and Output: 07/17/18 07/18/18 18:59 06:59 Intake Total 610 Balance 610 - Medications Medications: Current Medications Aspirin (Aspirin Chewable) 81 mg PO DAILY [facility] Last Admin: 07/17/18 09:36 Dose: 81 mg Dextrose (Dextrose 50% Inj) 0 ml IV STAT PRN; Protocol PRN Reason: Hypoglycemia Protocol Dextrose (Glutose 15) 0 gm PO ONCE PRN; Protocol PRN Reason: Hypoglycemia Protocol Furosemide (Lasix) 40 mg IVP DAILY [facility] Last Admin: 07/17/18 09:37 Dose: 40 mg Glucagon (Glucagen Diagnostic Kit) 0 mg IM STAT PRN; Protocol PRN Reason: Hypoglycemia Protocol Home Med (Mycophenolate Sodium [Myfortic]) 3 tab PO BID [facility] Hydralazine HCl (Apresoline) 100 mg PO Q8H [facility] Last Admin: 07/17/18 18:33 Dose: 100 mg Sodium Chloride (Sodium Chloride 0.9%) 1,000 mls @ 75 mls/hr IV .[id number] [facility] Last Admin: 07/17/18 08:23 Dose: 75 mls/hr Dextrose (Dextrose 5% In Water 1000 Ml) 1,000 mls @ 0 mls/hr IV .Q0M PRN; Protocol PRN Reason: Hypoglycemia Protocol Insulin Aspart (Novolog) 0 unit SC ACHS [facility]; Protocol Last Admin: 07/17/18 16:36 Dose: Not Given Insulin Glargine (Lantus) 10 unit SC HS [facility] Lisinopril (Zestril) 10 mg PO DAILY [facility] Last Admin: 07/17/18 09:36 Dose: 10 mg Losartan Potassium (Cozaar) 100 mg PO DAILY [facility] Last Admin: 07/17/18 09:36 Dose: 100 mg Metoprolol Succinate (Toprol Xl) 25 mg PO DAILY [facility] Last Admin: 07/17/18 09:36 Dose: Not Given Multivitamins/Minerals (Therapeutic-M Tab) 1 tab PO DAILY [facility] Last Admin: 07/17/18 09:35 Dose: 1 tab Pantoprazole Sodium (Protonix Ec Tab) 40 mg PO DAILY PRN PRN Reason: hyperacidity Last Admin: 07/17/18 07:33 Dose: 40 mg Prednisone (Prednisone Tab) 5 mg PO DAILY [facility] Last Admin: 07/17/18 09:36 Dose: 5 mg Tacrolimus (Prograf Cap) 2 mg PO Q12 [facility] Last Admin: 07/17/18 09:37 Dose: 2 mg Trimethoprim/Sulfamethoxazole (Bactrim Ds Tab) 1 tab PO Q2W [facility]; Protocol - Labs Labs: 07/16/18 01:08 07/17/18 08:05 PT 11.9 SECONDS (9.7-12.2) 07/16/18 01:08 INR 1.1 07/16/18 01:08 APTT 29.5 SECONDS (21-34) 07/16/18 01:08 - Constitutional Appears: Well - Head Exam Head Exam: ATRAUMATIC, NORMAL INSPECTION, NORMOCEPHALIC - Eye Exam Eye Exam: EOMI, Normal appearance, PERRL Pupil Exam: NORMAL ACCOMODATION, PERRL - ENT Exam ENT Exam: Mucous Membranes Moist, Normal Exam - Neck Exam Neck Exam: Full ROM, Normal Inspection. absent: Lymphadenopathy - Respiratory Exam Respiratory Exam: Decreased Breath Sounds - Cardiovascular Exam Cardiovascular Exam: REGULAR RHYTHM, +S1, +S2 - GI/Abdominal Exam GI & Abdominal Exam: Soft, Diminished Bowel Sounds - Rectal Exam Rectal Exam: Deferred - Neurological Exam Neurological Exam: Oriented x3 Assessment and Plan - Assessment and Plan (Free Text) Plan: patient seen today no nausea, no vomiting, no dizziness, no diarrhea, no fever no shortness of breath medications reviewed vitlas reviewed labs reviewed apresoline aspirin chewable bactrim ds tab coreg cozaar dextrose glucagen diagnostic kit glutose 15 hydrodiuril isordil lantus lasix mag-ox novolog prednisone tab prograf cap protonix ec tab therapeutic m tab
[2018-07-17] MEDS ORDERED: (Novolog) Insulin Aspart, Recombinant 100 u/ml 10 ml vial SC ONE (21:19)
[2018-07-17] MEDS: (Lantus) Insulin Glargine, Recombinant SC SCH (21:54)
[2018-07-18 08:19] LABS: BLOOD UREA NITROGEN 24 mg/dL (9-20); CALCIUM 8.7 mg/dl (8.6-10.4); GFR NON-AFRICAN AMERICAN 55
[2018-07-18] MEDS: (Novolog) Insulin Aspart, Recombinant 100 u/ml 10 ml vial SC SCH ×4 (08:43→21:31)
[2018-07-18] MEDS: Multivitamin With Minerals Tab PO SCH (09:36)
[2018-07-18] MEDS: Pantoprazole 40 mg EC Tab PO PRN (09:36)
[2018-07-18] MEDS: Metoprolol Succinate 25 mg XL Tab PO SCH (09:36)
[2018-07-18] MEDS: Sodium Chloride 0.9% 1,000 ML IV SCH (10:54)
[2018-07-18 11:10] LABS: ALBUMIN (PEP) 3.3 g/dL (3.8-4.8); ALPHA-1-GLOBULIN (PEP) 0.2 g/dL (0.2-0.3)
[2018-07-18 11:49] LABS: ALBUMIN (PEP) 3.3 g/dL (3.8-4.8); ALPHA-1-GLOBULIN (PEP) 0.2 g/dL (0.2-0.3)
[2018-07-18] MEDS ORDERED: Glucagon Recombinant 1 mg Inj IV STA (12:12)
[2018-07-18 12:59] LABS: HEMOGLOBIN 11.9 g/dL (12.0-18.0); MEAN CELL VOLUME 89.9 fL (80.0-94.0); MEAN CORPUSCULAR HEMOGLOBIN 30.6 pg (27.0-31.0); MEAN CORPUSCULAR HGB CONC 34.1 g/dL (33.0-37.0); MEAN PLATELET VOLUME 8.6 fL (7.2-11.7); RBC 3.9 Mil/uL (4.40-5.90); RED CELL DISTRIBUTION WIDTH 13.8 % (11.5-14.5)
[2018-07-18 13:00] LABS: WHITE BLOOD COUNT 8.9 K/uL (4.8-10.8)
[2018-07-18 13:02] LABS: ALB/GLOB RATIO 1.3 (1.0-2.1); ALBUMIN 2.9 g/dL (3.5-5.0); ALT/SGPT 19 U/L (21-72); AST/SGOT 29 U/L (17-59); BLOOD UREA NITROGEN 25 mg/dL (9-20); CALCIUM 8.6 mg/dl (8.6-10.4); GFR NON-AFRICAN AMERICAN 55
--- NOTE | 2018-07-18 13:04 | PCM.RRT ---
[employer] Nurses Assessment - Situation Date: 07/18/18 Time [employer] was called: 12:07 [employer] Responder Arrival Time:: 12:07 [employer] Location:: Med/Surg Room Number: 565B [employer] Reason for Call: Bradycardia, Hypotension, Looks Sicker [employer] Called By: RN - IV IV Inserted during [employer] BL[employer] INSTALLER?: No IV Fluids Initiated During [employer] BL[employer] INST[employer]ER?: NS bolus - Respiratory [employer] Delivery Method: Non Rebreather @% Received Nebulizer Treatments: No Was the Patient Ventilated with Bag/Mask 100% O2?: No Secretions Suctioned?: No Was the Patient Intubated?: No Was the Patient Placed on a Ventilator?: No - Diagnostic Test Ordered EKG: Yes Chest X-Ray: No CT Scan: No - Stat Labs Ordered [employer] Stat Labs Ordered: CBC, TROPONIN [employer] Other Labs Ordered: CMP, Mag, Phos, ProBmp CPR started during [employer] BL[employer] INSTALLER?: No - Vital Signs Vital Signs: Rapid Response Vital Sign Blood Pressure 86/30 Pulse Rate 38 Respiratory Rate 16 Oxygen Saturation 100 - Time [employer] Ended Time [employer] Ended: 12:40 - Vital Signs at end of [employer] Vital Signs at end of [employer] IN[employer]ER: Rapid Response End Vital Sign Blood Pressure 168/53 Pulse Rate 58 Respiratory Rate 22 O2 Sat by Pulse Oximetry 100 - Recommendations Notifications: Attending Physician, Consultations I.Reason for [employer] - A) Acute Change in Patient: (Select all that apply): Staff member or family is worried about patient - Respiratory Oxygen Delivery Method: Non Rebreather @% - Constitutional Appears: Non-toxic, No Acute Distress - Head Head Exam: ATRAUMATIC, NORMOCEPHALIC - Eyes Eye Exam: EOMI - Respiratory Exam Respiratory Exam: Clear to Ausculation Bilateral, NORMAL BREATHING PATTERN. absent: Rhonchi, Wheezes - Cardiovascular Exam Cardiovascular Exam: Bradycardia, +S1, +S2 - GI/Abdominal Exam GI & Abdominal Exam: Soft, Normal Bowel Sounds. absent: Tenderness - Neurological Exam Neurological Exam: Alert, Awake, Oriented x3 Additional exam: mildly lethargic Plan - Assessment of Findings&Treatment Plan Code star initially called for patient fell off toilet. Initial set of vitals taken showed patient to be bradycardic wit HR 36. Other vitals WNL. Patient picked up into wheelchair and placed back in hospital bed with NRB. Placed on laboratory monitor. Ordered stat CBC, CMP, mag, phos, NEISHA, EKG EKG showed no ST changes, sinus bradycardia Cardiology contacted via phone - Dr. Cedra On medication review, patient's medications had been edited earlier this morning and patient had received an additional dose of his beta alvin which was likely the cause of this patient's symptomatic bradycardia. Glucagon was not given as per cardio and patient's symptoms began improving and heart rate stable and improving- EKG sent to Dr. Cerda, who was on route to round on this patient coming from [facility]. Vitals at end [employer] 168/53 pulse 63 spO2 100% Temp 97.4
[2018-07-18 13:10] LABS: CK-MB 1.38 ng/mL (0.0-3.38)
[2018-07-18] MEDS: Magnesium Oxide 400 mg Tab UD PO SCH ×2 (13:32→17:23)
--- NOTE | 2018-07-18 19:09 | CP.PCM.PN ---
Subjective - Date & Time of Evaluation Date of Evaluation: 07/18/18 - Subjective Subjective: patient examined today no nausea, no vomiting, no dizziness, no diarrhea, no fever no shortness of breath Objective - Vital Signs/Intake and Output Vital Signs (last 24 hours): Temp Pulse Resp BP Pulse Ox 97.9 F 63 20 139/61 100 07/18/18 15:00 07/18/18 18:51 07/18/18 15:00 07/18/18 18:51 07/18/18 15:00 - Medications Medications: Current Medications Aspirin (Aspirin Chewable) 81 mg PO DAILY [facility] Last Admin: 07/18/18 09:35 Dose: 81 mg Carvedilol (Coreg) 6.25 mg PO Q12 [facility] Dextrose (Dextrose 50% Inj) 0 ml IV STAT PRN; Protocol PRN Reason: Hypoglycemia Protocol Dextrose (Glutose 15) 0 gm PO ONCE PRN; Protocol PRN Reason: Hypoglycemia Protocol Furosemide (Lasix) 40 mg IVP DAILY [facility] Last Admin: 07/18/18 09:38 Dose: 40 mg Glucagon (Glucagen Diagnostic Kit) 0 mg IM STAT PRN; Protocol PRN Reason: Hypoglycemia Protocol Home Med (Mycophenolate Sodium [Myfortic]) 3 tab PO BID [facility] Hydralazine HCl (Apresoline) 100 mg PO Q8H [facility] Last Admin: 07/18/18 18:55 Dose: 100 mg Hydrochlorothiazide (Hydrodiuril) 25 mg PO DAILY [facility] Dextrose (Dextrose 5% In Water 1000 Ml) 1,000 mls @ 0 mls/hr IV .Q0M PRN; Protocol PRN Reason: Hypoglycemia Protocol Insulin Aspart (Novolog) 0 unit SC ACHS [facility]; Protocol Last Admin: 07/18/18 17:23 Dose: 10 units Insulin Glargine (Lantus) 10 unit SC HS [facility] Last Admin: 07/17/18 21:54 Dose: 10 units Isosorbide Dinitrate (Isordil) 20 mg PO BID [facility] Last Admin: 07/18/18 17:24 Dose: 20 mg Losartan Potassium (Cozaar) 100 mg PO DAILY [facility] Last Admin: 07/18/18 09:35 Dose: 100 mg Magnesium Oxide (Mag-Ox) 400 mg PO BID [facility] Last Admin: 07/18/18 17:23 Dose: 400 mg Multivitamins/Minerals (Therapeutic-M Tab) 1 tab PO DAILY [facility] Last Admin: 07/18/18 09:36 Dose: 1 tab Pantoprazole Sodium (Protonix Ec Tab) 40 mg PO DAILY PRN PRN Reason: hyperacidity Last Admin: 07/18/18 09:36 Dose: 40 mg Prednisone (Prednisone Tab) 5 mg PO DAILY [facility] Last Admin: 07/18/18 09:36 Dose: 5 mg Tacrolimus (Prograf Cap) 2 mg PO Q12 [facility] Last Admin: 07/18/18 09:36 Dose: 2 mg Trimethoprim/Sulfamethoxazole (Bactrim Ds Tab) 1 tab PO Q2W [facility]; Protocol - Labs Labs: 07/18/18 12:43 07/18/18 12:43 PT 11.9 SECONDS (9.7-12.2) 07/16/18 01:08 INR 1.1 07/16/18 01:08 APTT 29.5 SECONDS (21-34) 07/16/18 01:08 - Constitutional Appears: Well - Head Exam Head Exam: ATRAUMATIC, NORMAL INSPECTION, NORMOCEPHALIC - Eye Exam Eye Exam: EOMI, Normal appearance, PERRL Pupil Exam: NORMAL ACCOMODATION, PERRL - ENT Exam ENT Exam: Mucous Membranes Moist, Normal Exam - Neck Exam Neck Exam: Full ROM, Normal Inspection. absent: Lymphadenopathy - Respiratory Exam Respiratory Exam: Decreased Breath Sounds - Cardiovascular Exam Cardiovascular Exam: REGULAR RHYTHM, +S1, +S2 - GI/Abdominal Exam GI & Abdominal Exam: Soft, Diminished Bowel Sounds - Rectal Exam Rectal Exam: Deferred - Neurological Exam Neurological Exam: Oriented x3 Assessment and Plan - Assessment and Plan (Free Text) Plan: patient seen today no nausea, no vomiting, no dizziness, no diarrhea, no fever no shortness of breath medications reviewed vitlas reviewed labs reviewed apresoline aspirin chewable bactrim ds tab coreg cozaar dextrose glucagen diagnostic kit glutose 15 hydrodiuril isordil lantus lasix mag-ox novolog prednisone tab prograf cap protonix ec tab therapeutic m tab
[2018-07-18] MEDS: (Lantus) Insulin Glargine, Recombinant SC SCH (21:31)
--- NOTE | 2018-07-18 23:33 | CP.PCM.PN ---
Subjective - Date & Time of Evaluation Date of Evaluation: 07/18/18 Time of Evaluation: 07:00 - Subjective Subjective: Kayley Pino PGY1 Progress Note for Dr Cerda: Pt was seen and examined this AM. Pt states that he has improved LE edema. Overnight the pt had an episode of HTN which was helped with hydralazine and clonidine. Pt was switched off of metoprolol and onto coreg. Pt had an episode of Hypotension which was addressed in PHOTOGR[employer] note. Objective - Vital Signs/Intake and Output Vital Signs (last 24 hours): Temp Pulse Resp BP Pulse Ox 97.9 F 63 20 139/61 100 07/18/18 15:00 07/18/18 20:36 07/18/18 15:00 07/18/18 18:51 07/18/18 15:00 Intake and Output: 07/18/18 07/19/18 18:59 06:59 Intake Total 300 Balance 300 - Medications Medications: Current Medications Aspirin (Aspirin Chewable) 81 mg PO DAILY [facility] Last Admin: 07/18/18 09:35 Dose: 81 mg Carvedilol (Coreg) 6.25 mg PO Q12 [facility] Last Admin: 07/18/18 21:38 Dose: 6.25 mg Dextrose (Dextrose 50% Inj) 0 ml IV STAT PRN; Protocol PRN Reason: Hypoglycemia Protocol Dextrose (Glutose 15) 0 gm PO ONCE PRN; Protocol PRN Reason: Hypoglycemia Protocol Furosemide (Lasix) 40 mg IVP DAILY [facility] Last Admin: 07/18/18 09:38 Dose: 40 mg Glucagon (Glucagen Diagnostic Kit) 0 mg IM STAT PRN; Protocol PRN Reason: Hypoglycemia Protocol Home Med (Mycophenolate Sodium [Myfortic]) 3 tab PO BID [facility] Hydralazine HCl (Apresoline) 100 mg PO Q8H [facility] Last Admin: 07/18/18 18:55 Dose: 100 mg Hydrochlorothiazide (Hydrodiuril) 25 mg PO DAILY [facility] Dextrose (Dextrose 5% In Water 1000 Ml) 1,000 mls @ 0 mls/hr IV .Q0M PRN; Pro tocol PRN Reason: Hypoglycemia Protocol Insulin Aspart (Novolog) 0 unit SC ACHS [facility]; Protocol Last Admin: 07/18/18 21:31 Dose: Not Given Insulin Glargine (Lantus) 10 unit SC HS [facility] Last Admin: 07/18/18 21:31 Dose: Not Given Isosorbide Dinitrate (Isordil) 20 mg PO BID [facility] Last Admin: 07/18/18 17:24 Dose: 20 mg Losartan Potassium (Cozaar) 100 mg PO DAILY [facility] Last Admin: 07/18/18 09:35 Dose: 100 mg Magnesium Oxide (Mag-Ox) 400 mg PO BID [facility] Last Admin: 07/18/18 17:23 Dose: 400 mg Multivitamins/Minerals (Therapeutic-M Tab) 1 tab PO DAILY [facility] Last Admin: 07/18/18 09:36 Dose: 1 tab Pantoprazole Sodium (Protonix Ec Tab) 40 mg PO DAILY PRN PRN Reason: hyperacidity Last Admin: 07/18/18 09:36 Dose: 40 mg Prednisone (Prednisone Tab) 5 mg PO DAILY [facility] Last Admin: 07/18/18 09:36 Dose: 5 mg Tacrolimus (Prograf Cap) 2 mg PO Q12 [facility] Last Admin: 07/18/18 21:38 Dose: 2 mg Trimethoprim/Sulfamethoxazole (Bactrim Ds Tab) 1 tab PO Q2W [facility]; Protocol - Labs Labs: 07/18/18 12:43 07/18/18 12:43 PT 11.9 SECONDS (9.7-12.2) 07/16/18 01:08 INR 1.1 07/16/18 01:08 APTT 29.5 SECONDS (21-34) 07/16/18 01:08 - Constitutional Appears: Non-toxic, No Acute Distress - Head Exam Head Exam: ATRAUMATIC, NORMAL INSPECTION, NORMOCEPHALIC - Eye Exam Eye Exam: EOMI, Normal appearance, PERRL - ENT Exam ENT Exam: Mucous Membranes Moist - Respiratory Exam Respiratory Exam: Clear to Auscultation Bilateral, NORMAL BREATHING PATTERN. absent: Accessory Muscle Use, Rales, Rhonchi, Wheezes, Respiratory Distress - Cardiovascular Exam Cardiovascular Exam: RRR, +S1, +S2. absent: Gallop, Rubs - GI/Abdominal Exam GI & Abdominal Exam: Normal Bowel Sounds, Soft. absent: Firm, Guarding, Rigid, Tenderness - Exam Exam: Scrotal Swelling ( Has resolved and Pt also noted to have resolved penile swelling with no associated erythema, lesions or drainage.). absent: Testicular Tenderness, Uretheral Discharge - Extremities Exam Extremities exam: Positive for: normal capillary refill, pedal edema (2+ b/l pi tting edema), pedal pulses present. Negative for: calf tenderness - Back Exam Back exam: NORMAL INSPECTION. absent: CVA tenderness (L), CVA tenderness (R) - Neurological Exam Neurological exam: Alert, Normal Gait, Oriented x3 - Psychiatric Exam Psychiatric exam: Normal Affect, Normal Mood - Skin Skin Exam: Dry, Normal Color, Warm Assessment & Plan - Assessment and Plan (Free Text) Assessment: Pt is a 68 yo M with pmhx of CAD s/p stent (12/11), HTN, IDDM, renal transplant in '09 who presented to [facility] ED for 2 day hx of penile and sctrotal swelling as well as LE edema x 1 wk. Cardiology team was consulted for suspicion of CHF. 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 Pt is attempting to compensate for hyponatremia 2/2 extra-renal losses by increasing PO intake of sodium which is activating RAAS System. Pt is having profuse nightsweats daily for 2 years in addition to 5 lb unintentional weight loss. Likely caused by yet unknown inflammatory condition co-existing in pt. - BNP 7K likely due to high flow state cause by the PO intake of Na and activation of RAAS - LE edema is likely combination of poor venous system in addtion to high flow state. Pt has no SOB, MÉNDEZ, PND or JVD which would otherwise indicate acute CHF. - Echo - Lasix 40 IVP qd - Strict I/Os - Zestril - Coreg 6.25 q12 - Hydralazine 100 q8 Hyponatremia likely 2/2 extra-renal losses - Pt has been having profuse night sweats for 2 years. Pt also states that he has unintentional 5 lb weight loss. - Pt also on tacrolimus s/p renal transplant - Will get heme/onc to further assess underlying inflammatory condition and r/o malignancy - SPEP, UPEP, C3, C4 and complete compliment panel ordered. Hx of CAD s/p stent 12/11: - Cont ASA, Toprol XL, Zestril Hx of HTN: - Cont coreg, hydralazine, isosorbide dinitrate 20 BID, HCTZ 25mg, cozaar 100
[2018-07-19] MEDS: (Novolog) Insulin Aspart, Recombinant 100 u/ml 10 ml vial SC SCH ×2 (07:01→12:59)
[2018-07-19 07:51] VITALS: TEMP 97.9
[2018-07-19 08:21] LABS: BASO % 0.6 % (0.0-2.0); EOS # 0.2 K/uL (0.0-0.7); EOS % 2.8 % (0.0-4.0); HEMOGLOBIN 12.8 g/dL (12.0-18.0); LYMPH # 1.7 K/uL (1.0-4.3); LYMPH % 25.5 % (20.0-40.0); MEAN CELL VOLUME 89.4 fL (80.0-94.0); MEAN CORPUSCULAR HEMOGLOBIN 30.9 pg (27.0-31.0); MEAN CORPUSCULAR HGB CONC 34.5 g/dL (33.0-37.0); MEAN PLATELET VOLUME 8.7 fL (7.2-11.7); MONO # 0.7 K/uL (0.0-0.8); NEUT # 4.1 K/uL (1.8-7.0); NEUT % 61.1 % (50.0-75.0); RBC 4.14 Mil/uL (4.40-5.90); RED CELL DISTRIBUTION WIDTH 13.7 % (11.5-14.5); WHITE BLOOD COUNT 6.6 K/uL (4.8-10.8)
[2018-07-19] MEDS: Magnesium Oxide 400 mg Tab UD PO SCH (10:34)
[2018-07-19] MEDS: Multivitamin With Minerals Tab PO SCH (10:35)
[2018-07-19 11:17] VITALS: RESP 18
--- NOTE | 2018-07-19 12:48 | PCM.HF ---
Heart Failure Core Measure - Heart Failure Ejection Fraction: 40 % or Greater (EF 46%) DENZEL Inhibitor Prescribed: Yes Beta-Karly Prescribed: Metoprolol Succinate Angiotensin II Receptor Karly Prescribed: No Contraindication/Reason for not providing: on DENZEL AnticoagulationTherapy for Atrial Fibrillation/Atrialflutter: No Contraindication/Reason for not providing: no afib Aldosterone Antagonist Prescribed: No Contraindication/Reason for not providing: EF >40% Hydralazine Nitrate Prescribed: No Contraindication/Reason for not providing: EF >40% Implantable Cardioverter Defibrillator Therapy: No Contraindication/Reason for not providing: EF >40% Cardiac Resynchronization Therapy Prescribed: No Contraindication/Reason for not providing: not indicated - Follow up Will be discharged to: Home Follow Up Date (must be within 7 days from discharge): 07/24/18 Follow Up Time: 10:00
--- NOTE | 2018-07-19 12:50 | CP.PCM.PN ---
Subjective - Date & Time of Evaluation Date of Evaluation: 07/19/18 Time of Evaluation: 15:48 - Subjective Subjective: alert and orientedx3, ambulatory, denies sob or chest pains, NAD. Objective - Vital Signs/Intake and Output Vital Signs (last 24 hours): Temp Pulse Resp BP Pulse Ox 97.9 F 59 L 18 158/58 H 100 07/19/18 07:00 07/19/18 10:31 07/19/18 10:31 07/19/18 10:35 07/19/18 11:10 Intake and Output: 07/19/18 07/19/18 06:59 18:59 Intake Total 300 Balance 300 - Medications Medications: Current Medications Aspirin (Aspirin Chewable) 81 mg PO DAILY [facility] Last Admin: 07/19/18 10:35 Dose: 81 mg Carvedilol (Coreg) 6.25 mg PO Q12 [facility] Last Admin: 07/19/18 10:36 Dose: Not Given Dextrose (Dextrose 50% Inj) 0 ml IV STAT PRN; Protocol PRN Reason: Hypoglycemia Protocol Dextrose (Glutose 15) 0 gm PO ONCE PRN; Protocol PRN Reason: Hypoglycemia Protocol Furosemide (Lasix) 40 mg IVP DAILY [facility] Last Admin: 07/19/18 10:35 Dose: 40 mg Glucagon (Glucagen Diagnostic Kit) 0 mg IM STAT PRN; Protocol PRN Reason: Hypoglycemia Protocol Home Med (Mycophenolate Sodium [Myfortic]) 3 tab PO BID [facility] Hydralazine HCl (Apresoline) 100 mg PO Q8H [facility] Last Admin: 07/19/18 10:35 Dose: 100 mg Hydrochlorothiazide (Hydrodiuril) 25 mg PO DAILY [facility] Last Admin: 07/19/18 10:35 Dose: 25 mg Dextrose (Dextrose 5% In Water 1000 Ml) 1,000 mls @ 0 mls/hr IV .Q0M PRN; Protocol PRN Reason: Hypoglycemia Protocol Insulin Aspart (Novolog) 0 unit SC ACHS [facility]; Protocol Last Admin: 07/19/18 07:01 Dose: Not Given Insulin Glargine (Lantus) 10 unit SC HS [facility] Last Admin: 07/18/18 21:31 Dose: Not Given Isosorbide Dinitrate (Isordil) 20 mg PO BID [facility] Last Admin: 07/19/18 10:35 Dose: 20 mg Losartan Potassium (Cozaar) 100 mg PO DAILY [facility] Last Admin: 07/19/18 10:34 Dose: 100 mg Magnesium Oxide (Mag-Ox) 400 mg PO BID [facility] Last Admin: 07/19/18 10:34 Dose: 400 mg Multivitamins/Minerals (Therapeutic-M Tab) 1 tab PO DAILY [facility] Last Admin: 07/19/18 10:35 Dose: 1 tab Pantoprazole Sodium (Protonix Ec Tab) 40 mg PO DAILY PRN PRN Reason: hyperacidity Last Admin: 07/18/18 09:36 Dose: 40 mg Prednisone (Prednisone Tab) 5 mg PO DAILY [facility] Last Admin: 07/19/18 10:35 Dose: 5 mg Tacrolimus (Prograf Cap) 2 mg PO Q12 [facility] Last Admin: 07/19/18 10:35 Dose: 2 mg Trimethoprim/Sulfamethoxazole (Bactrim Ds Tab) 1 tab PO Q2W [facility]; Protocol - Labs Labs: 07/19/18 07:55 07/19/18 07:55 PT 11.9 SECONDS (9.7-12.2) 07/16/18 01:08 INR 1.1 07/16/18 01:08 APTT 29.5 SECONDS (21-34) 07/16/18 01:08 Assessment and Plan - Assessment and Plan (Free Text) Assessment: Patient admitted with edema, CHF, seen and examined. Feeling better, edema improved Denies sob or chest pains Discussed with DR Rajwinder Agarwal, plan to discharge home today. Advised to follow up PMD and cardiologyst in 1 week. Continued with lasix 20mg po daily.
[2018-07-19 13:11] VITALS: BP 168/65; PULSE 72; O2SAT 98
--- NOTE | 2018-07-19 21:36 | CP.PCM.DIS ---
Provider - Provider Date of Admission: 07/16/18 03:02 Attending physician: Haris Agarwal MD Consults: 07/16/18 03:32 Cardiology Consult Routine Comment: chf Consulting Provider: Humberto Cerda Consulting Physician: Humberto Cerda Reason for Consult: chf 07/16/18 18:13 Hematology Oncology Consult Routine Comment: Consulting Provider: Emile Daniels Consulting Physician: Emile Daniels Reason for Consult: Night sweats, unintentional weight loss, Hospital Course - Lab Results Lab Results: Most Recent Lab Values WBC 6.6 K/uL (4.8-10.8) 07/19/18 07:55 RBC 4.14 Mil/uL (4.40-5.90) L 07/19/18 07:55 Hgb 12.8 g/dL (12.0-18.0) 07/19/18 07:55 Hct 37.0 % (35.0-51.0) 07/19/18 07:55 MCV 89.4 fL (80.0-94.0) 07/19/18 07:55 MCH 30.9 pg (27.0-31.0) 07/19/18 07:55 MCHC 34.5 g/dL (33.0-37.0) 07/19/18 07:55 RDW 13.7 % (11.5-14.5) 07/19/18 07:55 Plt Count 203 K/uL (130-400) 07/19/18 07:55 MPV 8.7 fL (7.2-11.7) 07/19/18 07:55 Neut % (Auto) 61.1 % (50.0-75.0) 07/19/18 07:55 Lymph % (Auto) 25.5 % (20.0-40.0) 07/19/18 07:55 [place] % (Auto) 10.0 % (0.0-10.0) 07/19/18 07:55 Eos % (Auto) 2.8 % (0.0-4.0) 07/19/18 07:55 Baso % (Auto) 0.6 % (0.0-2.0) 07/19/18 07:55 Neut # (Auto) 4.1 K/uL (1.8-7.0) 07/19/18 07:55 Lymph # (Auto) 1.7 K/uL (1.0-4.3) 07/19/18 07:55 [place] # (Auto) 0.7 K/uL (0.0-0.8) 07/19/18 07:55 Eos # (Auto) 0.2 K/uL (0.0-0.7) 07/19/18 07:55 Baso # (Auto) 0.0 K/uL (0.0-0.2) 07/19/18 07:55 PT 11.9 SECONDS (9.7-12.2) 07/16/18 01:08 INR 1.1 07/16/18 01:08 APTT 29.5 SECONDS (21-34) 07/16/18 01:08 Sodium 130 mmol/L (132-148) L 07/19/18 07:55 Potassium 4.4 mmol/L (3.6-5.2) 07/19/18 07:55 Chloride 95 mmol/L (98-107) L 07/19/18 07:55 Carbon Dioxide 26 mmol/L (22-30) 07/19/18 07:55 Anion Gap 12 (10-20) 07/19/18 07:55 BUN 29 mg/dL (9-20) H 07/19/18 07:55 Creatinine 1.5 mg/dL (0.8-1.5) 07/19/18 07:55 Est GFR ( Amer) 56 07/19/18 07:55 Est GFR (Non-Af Amer) 46 07/19/18 07:55 POC Glucose (mg/dL) 351 mg/dL (65-110) H 07/19/18 10:52 Random Glucose 146 mg/dL (75-110) H D 07/19/18 07:55 Calcium 9.0 mg/dl (8.6-10.4) 07/19/18 07:55 Phosphorus 3.6 mg/dL (2.5-4.5) 07/18/18 12:43 Magnesium 1.5 mg/dL (1.6-2.3) L 07/18/18 12:43 Total Bilirubin 0.3 mg/dL (0.2-1.3) 07/18/18 12:43 AST 29 U/L (17-59) 07/18/18 12:43 ALT 19 U/L (21-72) L D 07/18/18 12:43 Alkaline Phosphatase 41 U/L (38-126) 07/18/18 12:43 Lactate Dehydrogenase 481 U/L (313-618) 07/17/18 13:51 Total Creatine Kinase 43 U/L (55-170) L 07/18/18 12:43 CK-MB (Mass) 1.38 ng/mL (0.0-3.38) 07/18/18 12:43 Troponin I 0.0550 ng/mL (0.00-0.120) 07/18/18 12:43 NT-Pro-B Natriuret Pep 7000 pg/mL (0-900) H 07/16/18 01:08 Total Protein 5.1 g/dL (6.3-8.3) L 07/18/18 12:43 Total Protein (PEP) 5.5 g/dL (6.1-8.1) L 07/17/18 13:51 Albumin 2.9 g/dL (3.5-5.0) L 07/18/18 12:43 Albumin (PEP) 3.3 g/dL (3.8-4.8) L 07/17/18 13:51 Globulin 2.2 gm/dL (2.2-3.9) 07/18/18 12:43 Albumin/Globulin Ratio 1.3 (1.0-2.1) 07/18/18 12:43 Zlstg-1-Svilvoozq 0.2 g/dL (0.2-0.3) 07/17/18 13:51 Yhdro-4-Ytszaqpna 0.8 g/dL (0.5-0.9) 07/17/18 13:51 Phfn-8-Nybpaycn 0.3 g/dL (0.4-0.6) L 07/17/18 13:51 Cngk-6-Megnvyjn 0.2 g/dL (0.2-0.5) 07/17/18 13:51 Gamma Globulins 0.7 g/dL (0.8-1.7) L 07/17/18 13:51 Abnorm Protein Band 1 TEST NOT PERFORMED 07/17/18 13:51 Abnorm Protein Band 2 TEST NOT PERFORMED 07/17/18 13:51 Abnorm Protein Band 3 TEST NOT PERFORMED 07/17/18 13:51 Triglycerides 79 mg/dL (0-149) 07/17/18 08:05 Cholesterol 162 mg/dL (0-199) 07/17/18 08:05 LDL Cholesterol Direct 96 mg/dL (0-129) 07/17/18 08:05 HDL Cholesterol 52 mg/dL (30-70) 07/17/18 08:05 TSH 3rd Generation 1.42 mIU/L (0.46-4.68) 07/16/18 01:08 Urine Color Straw (YELLOW) 07/16/18 00:12 Urine Clarity Clear (Clear) 07/16/18 00:12 Urine pH 6.0 (5.0-8.0) 07/16/18 00:12 Ur Specific [place] 1.002 (1.003-1.030) L 07/16/18 00:12 Urine Protein Negative mg/dL (NEGATIVE) 07/16/18 00:12 Urine Glucose (UA) Normal mg/dL (Normal) 07/16/18 00:12 Urine Ketones Negative mg/dL (NEGATIVE) 07/16/18 00:12 Urine Blood Negative (NEGATIVE) 07/16/18 00:12 Urine Nitrate Negative (NEGATIVE) 07/16/18 00:12 Urine Bilirubin Negative (NEGATIVE) 07/16/18 00:12 Urine Urobilinogen Normal mg/dL (0.2-1.0) 07/16/18 00:12 Ur Leukocyte Esterase Neg [place]/uL (Negative) 07/16/18 00:12 Urine WBC (Auto) < 1 /hpf (0-5) 07/16/18 00:12 Urine RBC (Auto) 2 /hpf (0-3) 07/16/18 00:12 Ur Squamous Epith Cells < 1 /hpf (0-5) 07/16/18 00:12 Ur Random Creatinine 41 mg/dL (20-320) 07/17/18 01:35 U Random Total Protein 732 mg/g creat (22-128) H 07/17/18 01:35 IgG 774.6 mg/dL (700.0-1600.0) 07/17/18 13:51 IgA 170.6 mg/dL (70.0-400.0) 07/17/18 13:51 IgM 54.0 mg/dL (40.0-230.0) 07/17/18 13:51 NILAY & SPEP Interp See note 07/17/18 13:51 Serum Immunofixation Not detected (Not Detected) 07/17/18 13:51 Complement C3 56.0 mg/dL (88.0-165.0) L 07/16/18 20:07 Complement C4 19.9 mg/dL (14.0-44.0) 07/16/18 20:07 Tot Complement (CH50) 49 U/mL (31-60) 07/16/18 20:07 Discharge Exam - Head Exam Head Exam: ATRAUMATIC, NORMAL INSPECTION, NORMOCEPHALIC Discharge Plan - Discharge Medications Prescriptions: Furosemide [Lasix] 20 mg PO DAILY 14 Days tablet - Follow Up Plan Condition: FAIR Disposition: HOME/ ROUTINE Instructions: Heart Healthy Diet, Dependent Edema (DC), Furosemide, Heart Failure (DC) Additional Instructions: FOLLOW UP WITH PRIMARY DOCTOR IN 1 WEEK. CONTINUE WITH PRESENT MEDICATIONS. IF SYMPTOMS CAME BACK OR WORSENS, GO TO THE EMERGENCY ROOM. Referrals: Humberto Cerda MD [Staff Provider] - Rakan Agarwal MD [Staff Provider] -
--- NOTE | 2018-07-20 10:06 | CARD ---
APPROVED REPORT Date of service: 07/16/2018 EKG Measurement Heart [id number] <Conclusion> Sinus bradycardia with marked sinus arrhythmia Nonspecific T wave abnormality Abnormal ECG
[2018-07-22 14:54] LABS: ALBUMIN 82.8 %; ALPHA-1 GLOBULIN 1.7 %
--- NOTE | 2018-07-23 07:52 | CARD ---
APPROVED REPORT Date of service: 07/18/2018 EKG Measurement Heart [id number] <Conclusion> Atrial fibrillation with slow ventricular response Low voltage QRS ST & T wave abnormality, consider lateral ischemia Abnormal ECG
[2018-07-30] MEDS ORDERED: Tmp-Smz 800 mg-160 mg DS Tab PO SCH (10:00)
== END 2018-07-19 15:09 | disposition home or self-care (01) ==
LOC: C.ER 22:33 → C.9E 07-16 03:02 → C.5S 07-16 04:03
PROVIDERS: ADMIT Internal Medicine Nephrology; ATTEND Internal Medicine Nephrology
DX: I50.9 Heart failure, unspecified (principal); N50.89 Other specified disorders of the male genital organs; R94.31 Abnormal electrocardiogram [ECG] [EKG]; I11.0 Hypertensive heart disease with heart failure; E10.9 Type 1 diabetes mellitus without complications; Z94.0 Kidney transplant status; Z79.4 Long term (current) use of insulin; Z95.5 Presence of coronary angioplasty implant and graft
CPT/HCPCS: 36415; 71045; 71260; 74177; 80048; 80053; 80061; 81001; 82570; 82784; 82948; 83615; 83735; 83880; 84100; 84155; 84156; 84165; 84166; 84443; 84484; 85025; 85027; 85610; 85730; 86160; 86162; 86334; 93005; 93306; 96361; 96374; 96375; 96376; 99285; G0378; J0360; J1940; J7030; J7070; J7507; Q9966; Q9967